=== PATIENT | female | born 1985 | race Caucasian/White ===

== ENCOUNTER 2019-03-08 09:08 | Emergency (ER) | payer OTHER ==
--- NOTE | 2019-03-08 10:05 | UC ---
Ear Complaint HPI - HPI Summary HPI Summary: 33 yo female presents with LEFT ear complaint. She tells me that for the last month she has noticed left ear intermittent pressure and decreased hearing. She states she has had a problem with ear wax in the past, but has never had to have ear irrigation performed. She denies fever, chills, headache, dizziness, sinus symptoms, sore throat, or trauma. - History of Current Complaint Chief Complaint: UCEar Stated Complaint: EAR PROBLEM Time Seen by Provider: 03/08/19 10:05 Hx Obtained From: Patient Hx Last Menstrual Period: 02/26/19 Onset/Duration: Gradual Onset Severity Initially: Moderate Severity Currently: Moderate Pain Intensity: 7 Pain Scale Used: 0-10 Numeric - Allergies/Home Medications Allergies/Adverse Reactions: Allergies Allergy/AdvReac Type Severity Reaction Status Date / Time No Known Allergies Allergy Verified 03/08/19 09:59 Home Medications: Home Medications FLUoxetine* [Prozac*] 80 mg PO DAILY 03/08/19 [History Confirmed 03/08/19] PMH/Surg Hx/FS Hx/Imm Hx Psychological History: Anxiety, Depression - Surgical History Surgical History: None - Family History Known Family History: Positive: None - Social History Lives: With Family Alcohol Use: None Substance Use Type: None Smoking Status (MU): Never Smoked Tobacco Review of Systems All Other Systems Reviewed And Are Negative: No Constitutional: Positive: Negative Skin: Positive: Negative Eyes: Positive: Negative ENT: Positive: Ear Ache Respiratory: Positive: Negative Cardiovascular: Positive: Negative Gastrointestinal: Positive: Negative Neurological: Positive: Negative Psychological: Positive: Negative Physical Exam - Summary Physical Exam Summary: GENERAL: NAD. WDWN. No pain distress. SKIN: No rashes, sores, lesions, or open wounds. HEENT: Head: AT/NC Eyes: EOM intact. Conjunctiva clear without inflammation or discharge. Ears: Hearing grossly normal. LEFT TM occluded by brown/black cerumen. S/p irrigation; TMs intact, no bulging, erythema, or edema. Nose: Nasal mucosa pink and moist. NTTP maxillary and frontal sinus. Throat: Posterior oropharynx without exudates, erythema, or tonsillar enlargement. Uvula midline. NECK: Supple. Nontender. No lymphadenopathy. CHEST: CTAB. No r/r/w. No accessory muscle use. Breathing comfortably and in no distress. CV: RRR. Pulses intact. Cap refill <2seconds NEURO: Alert. PSYCH: Age appropriate behavior. Triage Information Reviewed: Yes Vital Signs: Initial Vital Signs Temp 98.7 F 03/08/19 09:56 Pulse 75 03/08/19 09:56 Resp 15 03/08/19 09:56 BP 112/73 03/08/19 09:56 Pulse Ox 100 03/08/19 09:56 Vital Signs Reviewed: Yes Ear Complaint Course/Dx - Course Course Of Treatment: Ceurmen impaction with successful disimpaction by nursing with saline irrigation. TMs WNL and intact. - Differential Dx/Diagnosis Provider Diagnosis: Cerumen impaction Discharge ED - Sign-Out/Discharge Documenting (check all that apply): Patient Departure All imaging exams completed and their final reports reviewed: No Studies - Discharge Plan Condition: Stable Disposition: HOME Patient Education Materials: Cerumen Impaction (ED) Referrals: No Primary Care Phys,NOPCP [Primary Care Provider] - Additional Instructions: May try Debrox drops [id number] for your ear wax - Billing Disposition and Condition Condition: STABLE Disposition: Home
== END 2019-03-08 11:15 | disposition home or self-care (01) ==
LOC: UCEAST 09:08
DX: H61.22 Impacted cerumen, left ear (principal); F41.9 Anxiety disorder, unspecified; F32.9 Major depressive disorder, single episode, unspecified; Z79.899 Other long term (current) drug therapy
CPT/HCPCS: 99202; G0463